=== PATIENT | female | born 1990 | race Caucasian/White ===

== ENCOUNTER 2017-08-29 19:36 | Outpatient (CLI) | payer MEDICAID ==
[2017-08-30] MEDS: HYDROCODONE/APAP (5/325) TAB PO (00:06)
== END 2017-08-30 01:15 | disposition home or self-care (01) ==
LOC: OBT 19:36 → L-D 19:39
DX: O62.9 Abnormality of forces of labor, unspecified (principal); Z3A.37 37 weeks gestation of pregnancy
CPT/HCPCS: Z7500

== ENCOUNTER 2017-08-31 11:54 | Inpatient (IN) | payer MEDICAID ==
[2017-08-31] MEDS: LACTATED RINGER'S 1,000 ML IV ×2 (13:57→21:37)
[2017-08-31] MEDS ORDERED: MISOPROSTOL 200 MCG TAB PR (14:00)
[2017-08-31] MEDS ORDERED: LIDOCAINE 1% (MPF) 30 ML INJ INJ (14:00)
[2017-08-31] MEDS ORDERED: IBUPROFEN 600 MG TAB PO (14:00)
[2017-08-31] MEDS ORDERED: METHYLERGONOVINE 0.2 MG INJ IM (14:00)
[2017-08-31] MEDS ORDERED: OXYTOCIN 30 UNITS/LR 500 ML IV ×2 (14:00)
[2017-08-31] MEDS ORDERED: CARBOPROST 250 MCG INJ IM (14:00)
[2017-08-31 14:02] LABS: RUPTURE FETAL MEMBRANES NEGATIVE (NEGATIVE)
[2017-08-31 14:40] LABS: ADD MAN DIFF? NO
[2017-08-31 14:43] LABS: WHITE BLOOD COUNT 9.1 10^3/ul (4.8-10.8)
[2017-08-31 14:43] LABS: BASOPHILS % 0.4 % (0.0-2.0); EOSINOPHILS # 0.1 10^3/ul (0.0-0.5); EOSINOPHILS % 0.5 % (0.0-7.0); HEMATOCRIT 32.7 % (37.0-47.0); HEMOGLOBIN 10.5 g/dl (12.0-16.0); LYMPHOCYTES # 2.2 10^3/ul (0.8-2.9); LYMPHOCYTES % 24.5 % (15.0-51.0); MEAN CORPUSCULAR HEMOGLOBIN 27.1 pg (29.0-33.0); MEAN CORPUSCULAR HGB CONC 32.1 g/dl (32.0-37.0); MEAN CORPUSCULAR VOLUME 84.3 fl (82.0-101.0); MEAN PLATELET VOLUME 11.1 fl (7.4-10.4); MONOCYTE # 0.8 10^3/ul (0.3-0.9); MONOCYTES % 8.8 % (0.0-11.0); NEUTROPHIL # 5.9 10^3/ul (1.6-7.5); NEUTROPHILS % 64.9 % (39.0-77.0); PLATELET COUNT 295 10^3/UL (140-415); RED BLOOD COUNT 3.88 10^6/ul (4.20-5.40); RED CELL DISTRIBUTION WIDTH 14.4 % (11.5-14.5)
[2017-08-31 15:15] LABS: INR 0.89; PROTIME 12.1 Sec (11.9-14.9); PT RATIO 0.9
[2017-08-31 15:16] LABS: PARTIAL THROMBOPLASTIN TIME 29.5 Sec (25.0-35.0)
[2017-08-31 15:26] LABS: GLUCOSE 76 mg/dl (70-220)
[2017-08-31] MEDS: OXYTOCIN 30 UNITS/LR 500 ML IV ×2 (15:37→18:13)
[2017-08-31] MEDS: BUTORPHANOL 2 MG INJ IV (17:27)
[2017-08-31] MEDS ORDERED: OXYCODONE/ASPIRIN (4.88/325) TAB PO ×2 (21:00)
[2017-08-31] MEDS ORDERED: ACETAMINOPHEN 325 MG TAB PO (21:00)
[2017-08-31] MEDS ORDERED: HYDROCODONE/APAP (5/325) TAB PO ×2 (21:00)
[2017-08-31] MEDS ORDERED: DIBUCAINE 1% 30 GM OINT PR (21:00)
[2017-08-31] MEDS ORDERED: ONDANSETRON 4 MG INJ IV (21:00)
[2017-08-31] MEDS: BENZOCAINE 20% 56 ML SPRAY TOP (22:05)
[2017-08-31] MEDS: SENNA/DOCUSATE NA (8.6MG/50MG) TAB PO (22:05)
[2017-08-31] MEDS: LANOLIN 7 GM TUBE TOP (22:06)
[2017-08-31] MEDS: WITCH HAZEL/GLYCERIN PAD PR (22:06)
[2017-09-01] MEDS: OXYTOCIN 30 UNITS/LR 500 ML IV (00:01)
[2017-09-01] MEDS: IBUPROFEN 600 MG TAB PO ×4 (00:02→17:55)
[2017-09-01] MEDS: LACTATED RINGER'S 1,000 ML IV (05:37)
[2017-09-01] MEDS: SENNA/DOCUSATE NA (8.6MG/50MG) TAB PO ×2 (09:06→21:23)
[2017-09-01] MEDS: INFLUENZA VIRUS VACCINE 0.5 ML (DISPENSING) IM* (10:01)
[2017-09-01 10:15] LABS: ADD MAN DIFF? NO
[2017-09-01 10:18] LABS: BASOPHIL # 0.1 10^3/ul (0.0-0.1); BASOPHILS % 0.5 % (0.0-2.0); EOSINOPHILS # 0.1 10^3/ul (0.0-0.5); HEMATOCRIT 32.3 % (37.0-47.0); HEMOGLOBIN 10.3 g/dl (12.0-16.0); LYMPHOCYTES # 2.7 10^3/ul (0.8-2.9); LYMPHOCYTES % 27.6 % (15.0-51.0); MEAN CORPUSCULAR HEMOGLOBIN 26.8 pg (29.0-33.0); MEAN CORPUSCULAR HGB CONC 31.9 g/dl (32.0-37.0); MEAN CORPUSCULAR VOLUME 83.9 fl (82.0-101.0); MEAN PLATELET VOLUME 10.9 fl (7.4-10.4); MONOCYTE # 0.6 10^3/ul (0.3-0.9); MONOCYTES % 5.8 % (0.0-11.0); NEUTROPHIL # 6.4 10^3/ul (1.6-7.5); NEUTROPHILS % 64.2 % (39.0-77.0); PLATELET COUNT 245 10^3/UL (140-415); RED BLOOD COUNT 3.85 10^6/ul (4.20-5.40); RED CELL DISTRIBUTION WIDTH 14.2 % (11.5-14.5)
[2017-09-01 10:18] LABS: WHITE BLOOD COUNT 9.9 10^3/ul (4.8-10.8)
[2017-09-01] MEDS: MEASLES,MUMPS,RUBELLA VACCINE INJ SC* (14:27)
[2017-09-01 19:20] LABS: RAPID PLASMA REAGIN NONREACTIVE (NR)
[2017-09-02] MEDS: IBUPROFEN 600 MG TAB PO ×4 (00:05→17:47)
[2017-09-02] MEDS: SENNA/DOCUSATE NA (8.6MG/50MG) TAB PO (09:49)
[2017-09-02] MEDS: DIPHTH/TET/ACEL PERTUSS (ADULT) 0.5 ML VIAL IM* (12:00)
== END 2017-09-02 19:03 | disposition home or self-care (01) | DRG 775 ==
LOC: L-D 11:54 → PP1 20:29
PROVIDERS: Obstetrics & Gynecology
PROC: 10E0XZZ Delivery of Products of Conception, External Approach (ICD-10-PCS; principal; 2017-08-31)
DX: O24.429 Gestational diabetes mellitus in childbirth, unspecified control (principal); Z37.0 Single live birth; Z3A.37 37 weeks gestation of pregnancy
CPT/HCPCS: 82947; 84112; 85025; 85610; 85730; 86592; 86900; 86901; 90686; 90715

== ENCOUNTER 2018-01-28 06:54 | Day surgery (SDC) | payer MEDICAID ==
[2018-01-28] MEDS: BUPIVACAINE 0.25% (MPF) 30 ML INJ INJ
[2018-01-28 07:53] LABS: ADD MAN DIFF? NO
[2018-01-28 08:01] LABS: BASOPHIL # 0.1 10^3/ul (0.0-0.1); BASOPHILS % 0.6 % (0.0-2.0); EOSINOPHILS # 0.2 10^3/ul (0.0-0.5); EOSINOPHILS % 2.7 % (0.0-7.0); HEMATOCRIT 39.5 % (37.0-47.0); HEMOGLOBIN 12.8 g/dl (12.0-16.0); LYMPHOCYTES % 37.4 % (15.0-51.0); MEAN CORPUSCULAR HEMOGLOBIN 29.7 pg (29.0-33.0); MEAN CORPUSCULAR HGB CONC 32.4 g/dl (32.0-37.0); MEAN CORPUSCULAR VOLUME 91.6 fl (82.0-101.0); MEAN PLATELET VOLUME 10.1 fl (7.4-10.4); MONOCYTE # 0.6 10^3/ul (0.3-0.9); NEUTROPHIL # 4.2 10^3/ul (1.6-7.5); NEUTROPHILS % 51.9 % (39.0-77.0); PLATELET COUNT 246 10^3/UL (140-415); RED BLOOD COUNT 4.31 10^6/ul (4.20-5.40); RED CELL DISTRIBUTION WIDTH 12.2 % (11.5-14.5)
[2018-01-28] MEDS ORDERED: LIDOCAINE 2% (SDV) 5 ML INJ (10:32)
[2018-01-28] MEDS ORDERED: ROCURONIUM 50 MG INJ ×2 (10:32→10:41)
[2018-01-28] MEDS ORDERED: PROPOFOL 20 ML (10:32)
[2018-01-28] MEDS ORDERED: MIDAZOLAM 1 MG/ML 2 ML INJ (10:32)
[2018-01-28] MEDS ORDERED: SUCCINYLCHOLINE CHLORIDE 100 MG/5 ML SYG IV (10:32)
[2018-01-28] MEDS ORDERED: FENTAnyl 50 MCG/ML VIAL ×2 (10:37→12:05)
[2018-01-28] MEDS ORDERED: CEFAZOLIN 1 GM INJ (10:41)
[2018-01-28] MEDS ORDERED: DEXAMETHASONE 4 MG/ML 1 ML INJ (10:41)
[2018-01-28] MEDS ORDERED: ONDANSETRON 4 MG INJ (10:41)
[2018-01-28] MEDS ORDERED: FAMOTIDINE 20 MG INJ (10:42)
[2018-01-28] MEDS ORDERED: BUPIVACAINE 0.25% (MPF) 30 ML INJ (11:04)
[2018-01-28] MEDS ORDERED: EPHEDrine 25 MG/5 ML SYG (11:27)
[2018-01-28] MEDS ORDERED: SUGAMMADEX SODIUM 200 MG/2 ML VIAL IV (11:49)
[2018-01-28] MEDS ORDERED: KETOROLAC 30 MG INJ (12:00)
[2018-01-28] MEDS ORDERED: OXYCODONE/ACETAMINOPHEN (5/325) TAB PO (12:30)
[2018-01-28] MEDS ORDERED: FENTAnyl 50 MCG/ML VIAL IV ×3 (12:30)
[2018-01-28] MEDS ORDERED: PROCHLORPERAZINE 10 MG INJ IV (12:30)
[2018-01-28] MEDS ORDERED: MEPERIDINE 25 MG INJ IV (12:30)
[2018-01-28] MEDS ORDERED: hydrALAzine 20 MG INJ IV (12:30)
[2018-01-28] MEDS ORDERED: DIPHENHYDRAMINE 50 MG INJ IV (12:30)
[2018-01-28] MEDS ORDERED: HYDROmorphONE 1 MG/5 ML IV SYRINGE IV ×2 (12:30)
[2018-01-28] MEDS ORDERED: LABETALOL HCL 20MG INJ IV (12:30)
[2018-01-28] MEDS: HYDROmorphONE 1 MG/5 ML IV SYRINGE IV (12:56)
[2018-01-28] MEDS: ONDANSETRON 4 MG INJ IV (12:56)
== END 2018-01-28 13:57 | disposition home or self-care (01) ==
LOC: SDS 06:54
DX: Z30.2 Encounter for sterilization (principal)
CPT/HCPCS: 58661; 84703; 85025; 86850; 86900; 86901; 88302